=== PATIENT | female | born 1995 | race Caucasian/White ===

== ENCOUNTER 2021-07-08 16:21 | Emergency (ER) | payer OTHER ==
[~2021-07-08] VITALS: Ht 160 cm; Wt 49.4 kg
--- NOTE | 2021-07-08 16:40 | NUR ---
25 YRS FEMAL CAME FROM home c/o withdrawl xanex and fantanle stope for last 3-4 days awake and alert
--- NOTE | 2021-07-08 16:57 | NUR ---
wating to be seen by provider
[2021-07-08] MEDS ORDERED: IV NS 0.9% 1,000 ML BAG IV ONE ×2 (17:30→19:30)
[2021-07-08] MEDS ORDERED: LORAZEPAM INJ 2 MG/ML VIAL IV ONE (17:30)
[2021-07-08] MEDS ORDERED: ONDANSETRON HCL/PF 4 MG/2 ML VIAL IVP ONE (17:30)
[2021-07-08] MEDS ORDERED: KETOROLAC TROMETHAMINE INJ 30 MG/ML VIAL IV ONE (17:30)
[2021-07-08] MEDS ORDERED: CHLORDIAZEPOXIDE HCL 25 MG CAPSULE PO ONE ×2 (17:30→19:30)
[2021-07-08] MEDS ORDERED: CYCLOBENZAPRINE 10 MG TABLET PO ONE (17:30)
--- NOTE | 2021-07-08 17:35 | NUR ---
URINE SPECIMEN COLLECTED AND SENT TO LAB.
[2021-07-08] MEDS ORDERED: KETOROLAC TROMETHAMINE 15 MG/ML VIAL ONE (17:41)
[2021-07-08] MEDS ORDERED: ONDANSETRON HCL/PF 4 MG/2 ML VIAL ONE (17:41)
[2021-07-08] MEDS ORDERED: CHLORDIAZEPOXIDE HCL 25 MG CAPSULE ONE ×2 (17:42→19:23)
[2021-07-08] MEDS ORDERED: CYCLOBENZAPRINE 10 MG TABLET ONE (17:42)
[2021-07-08] MEDS ORDERED: LORAZEPAM INJ 2 MG/ML VIAL ONE (17:43)
--- NOTE | 2021-07-08 17:45 | NUR ---
seen by JASON CHRISTINA ORDER WAS GIVEN AND STERTED
[2021-07-08 17:51] LABS: BASOPHILS # (AUTO) 0.1 K/uL (0.0-0.2); BASOPHILS % (AUTO) 0.4 % (0.0-2.0); HEMATOCRIT 49 % (33-45); HEMOGLOBIN 16.1 g/dL (11.5-14.8); LYMPHOCYTES # (AUTO) 1.6 K/uL (0.8-4.8); LYMPHOCYTES % (AUTO) 10.9 % (20.0-44.0); MEAN CORPUSCULAR HGB CONC 33 g/dl (31.0-36.0); MEAN CORPUSCULAR VOLUME 84 fL (82-100); MONOCYTES # (AUTO) 0.6 K/uL (0.1-1.30); MONOCYTES % (AUTO) 4.2 % (2.0-12.0); NEUTROPHILS # (AUTO) 12.6 K/uL (1.8-8.9); NEUTROPHILS % (AUTO) 84.5 % (43.0-81.0); PLATELET COUNT (AUTO) 422 K/uL (150-450); WHITE BLOOD COUNT (AUTO) 14.9 K/uL (4.3-11.0)
[2021-07-08 18:10] LABS: ALBUMIN 5.3 g/dL (3.4-5.0); BILIRUBIN,DIRECT 0.2 mg/dL (0.0-0.2); BILIRUBIN,TOTAL 0.7 mg/dL (0.2-1.0); CALCIUM, SERUM 10.2 mg/dL (8.5-10.1); POTASSIUM 3.7 mmol/L (3.5-5.1); TOTAL PROTEIN, SERUM 9.8 g/dL (6.4-8.2)
[2021-07-08] MEDS: CLONIDINE HCL 0.1MG/24H PTWK 1 EA PATCH TD SCH ×2 (18:22→18:26)
[2021-07-08 18:23] LABS: BILIRUBIN,URINE NEGATIVE (NEGATIVE); COLOR,URINE YELLOW (YELLOW); LEUKOCYTE ESTERASE ,URINE TRACE (NEGATIVE); NITRITE, URINE NEGATIVE (NEGATIVE); PROTEIN,URINE NEGATIVE (NEGATIVE); UGLUCOSE NEGATIVE (NEGATIVE); UROBILINOGEN,URINE 0.2 EU/dL (0.2)
--- NOTE | 2021-07-08 18:30 | NUR ---
Clonidine 0.1mg pach appled on lt upper arm
--- NOTE | 2021-07-08 18:37 | NUR ---
PT COMMFORTABLE NO PAIN
[2021-07-08 18:38] LABS: BACTERIA,URINE Few /HPF (None Seen); MUCUS,URINE Few /LPF (None Seen); RBC,URINE 0-2 /HPF (0-2); SQUAMOUS EPITHELIAL CELL,UR Moderate /HPF (None Seen); WBC,URINE 0-2 /HPF (0-3)
--- NOTE | 2021-07-08 19:00 | NUR ---
pt c/o in and out of with drow ivf infused and completed encoure pt to increse po intack
--- NOTE | 2021-07-08 19:10 | NUR ---
Hand off to Siobhan balbuena fully up with drow
[2021-07-08] MEDS ORDERED: CYCL10TA9 PO (20:25)
[2021-07-08] MEDS ORDERED: CHLO25CA22 PO (20:25)
--- NOTE | 2021-07-08 20:50 | NUR ---
CALLED [facility]MENT [facility], AWARE PT WILL BE DISCHARGED. WILL BE HERE IN 15 MIN
--- NOTE | 2021-07-08 21:03 | NUR ---
PT WILL WAIT FOR HER RIDE (zay) IN WAITING ROOM
[2021-07-08 21:04] VITALS: BP 135/92
== END 2021-07-08 21:05 | disposition home or self-care (01) ==
LOC: ER 16:29
DX: F11.23 Opioid dependence with withdrawal (principal); F13.10 Sedative, hypnotic or anxiolytic abuse, uncomplicated; F10.10 Alcohol abuse, uncomplicated; F17.200 Nicotine dependence, unspecified, uncomplicated; R11.2 Nausea with vomiting, unspecified; R68.83 Chills (without fever); D72.829 Elevated white blood cell count, unspecified; E86.0 Dehydration; R00.0 Tachycardia, unspecified; F20.9 Schizophrenia, unspecified; F31.9 Bipolar disorder, unspecified; Y90.9 Presence of alcohol in blood, level not specified
CPT/HCPCS: 36415; 80048; 80076; 81001; 83690; 84703; 85025; 96361; 96374; 96375; 99285; J1885; J2060; J2405; J7030

== ENCOUNTER 2021-07-10 16:28 | Emergency (ER) | payer OTHER ==
[~2021-07-10] VITALS: Ht 160 cm; Wt 54.4 kg
[~2021-07-10 16:28] MED LIST: CHLO25CA22 PO; CYCL10TA9 PO
[2021-07-10] MEDS ORDERED: LORAZEPAM INJ 2 MG/ML VIAL IV ONE ×2 (17:30→19:00)
[2021-07-10] MEDS ORDERED: IV NS 0.9% 1,000 ML BAG IV ONE (17:30)
[2021-07-10] MEDS ORDERED: ONDANSETRON HCL/PF 4 MG/2 ML VIAL IVP ONE (17:30)
[2021-07-10] MEDS ORDERED: LORAZEPAM INJ 2 MG/ML VIAL ONE ×2 (18:00→20:54)
[2021-07-10] MEDS ORDERED: ONDANSETRON HCL/PF 4 MG/2 ML VIAL ONE (18:00)
--- NOTE | 2021-07-10 18:07 | NUR ---
THE PATIENT - SLEEPING AT BEDSIDE MEDS GIVEN HEP LOCK PIV # 20 - LEJ
[2021-07-10 18:12] LABS: BASOPHILS # (AUTO) 0.1 K/uL (0.0-0.2); BASOPHILS % (AUTO) 0.7 % (0.0-2.0); EOSINOPHILS % (AUTO) 2.3 % (0.0-6.0); HEMATOCRIT 39 % (33-45); HEMOGLOBIN 12.8 g/dL (11.5-14.8); LYMPHOCYTES # (AUTO) 3.5 K/uL (0.8-4.8); MEAN CORPUSCULAR HGB CONC 33 g/dl (31.0-36.0); MEAN CORPUSCULAR VOLUME 85 fL (82-100); MONOCYTES # (AUTO) 0.7 K/uL (0.1-1.30); MONOCYTES % (AUTO) 6.1 % (2.0-12.0); NEUTROPHILS # (AUTO) 6.5 K/uL (1.8-8.9); NEUTROPHILS % (AUTO) 58.9 % (43.0-81.0); PLATELET COUNT (AUTO) 324 K/uL (150-450); RED BLOOD CELL COUNT(AUTO) 4.64 MIL/uL (4.0-5.2); WHITE BLOOD COUNT (AUTO) 11.1 K/uL (4.3-11.0)
[2021-07-10 18:25] LABS: CALCIUM, SERUM 8.9 mg/dL (8.5-10.1); CREATININE 0.8 mg/dL (0.6-1.3); POTASSIUM 3.4 mmol/L (3.5-5.1)
[2021-07-10 18:31] LABS: ALBUMIN 3.9 g/dL (3.4-5.0); BILIRUBIN,DIRECT 0.1 mg/dL (0.0-0.2); BILIRUBIN,TOTAL 0.5 mg/dL (0.2-1.0); TOTAL PROTEIN, SERUM 7.2 g/dL (6.4-8.2)
--- NOTE | 2021-07-10 21:09 | NUR ---
IV removed. Catheter intact and site benign. Pressure and 4x4 applied to site. No bleeding noted.Patient discharged to home in stable condition. Written and verbal after care instructions given. Patient verbalizes understanding of instruction.
--- NOTE | 2021-07-10 21:11 | NUR ---
Patient discharged to home in stable condition. Written and verbal after care instructions given. Patient verbalizes understanding of instruction.
[2021-07-10 21:12] VITALS: BP 138/77
== END 2021-07-10 21:12 | disposition home or self-care (01) ==
LOC: ER 16:40
DX: F13.239 Sedative, hypnotic or anxiolytic dependence with withdrawal, unspecified (principal); F20.9 Schizophrenia, unspecified; F31.9 Bipolar disorder, unspecified; Z88.8 Allergy status to other drugs, medicaments and biological substances; Z79.899 Other long term (current) drug therapy
CPT/HCPCS: 36415; 80048; 80076; 84703; 85025; 93005; 96361; 96374; 96375; 96376; 99284; J2060 ×2; J2405; J7030

== ENCOUNTER 2022-06-29 09:07 | Emergency (ER) | payer OTHER ==
[~2022-06-29] VITALS: Ht 162.6 cm; Wt 54.9 kg
--- NOTE | 2022-06-29 09:20 | NUR ---
HALIMA FOR OK TO BOOK , PATIENTS STATES THAT SHE IS 3 MONTHS . ASKED TO GIVE US URINE SAMPLE BUT SHE REFUSED AT THIS TIME EVEN AFTER EXPLAINING THE IMPORTANCE OF URINE FOR CONTINUITY OF CARE . WILL TRY TO GET SAMPLE AGAIN. CARE CONTINUES
--- NOTE | 2022-06-29 11:00 | NUR ---
PATIENT STILL REFUSING TO GIVE URINE SPECIMEN. ER AWARE.
[2022-06-29] MEDS ORDERED: MIDAZOLAM HCL 2 MG/2ML VIAL ONE (11:26)
[2022-06-29] MEDS ORDERED: MIDAZOLAM HCL 2 MG/2ML VIAL IM ONE (11:30)
--- NOTE | 2022-06-29 12:20 | NUR ---
URINE COLLECTED AND SENT TO LAB
--- NOTE | 2022-06-29 12:30 | NUR ---
JB RELEASED THE PATIENT FROM [facility]. MADE AWARE
[2022-06-29 12:36] LABS: BILIRUBIN,URINE NEGATIVE (NEGATIVE); COLOR,URINE DARK YELLOW (YELLOW); LEUKOCYTE ESTERASE ,URINE NEGATIVE (NEGATIVE); NITRITE, URINE NEGATIVE (NEGATIVE); PH,URINE 7.5 (5.0-8.0); PROTEIN,URINE NEGATIVE (NEGATIVE); UGLUCOSE NEGATIVE (NEGATIVE); UROBILINOGEN,URINE 0.2 EU/dL (0.2)
[2022-06-29 12:39] LABS: BACTERIA,URINE Few /HPF (None Seen); RBC,URINE 0-2 /HPF (0-2); SQUAMOUS EPITHELIAL CELL,UR Rare /HPF (None Seen); WBC,URINE 0-2 /HPF (0-3)
[2022-06-29 12:44] VITALS: BP 135/84
--- NOTE | 2022-06-29 12:44 | NUR ---
Patient discharged to home in stable condition. Written and verbal after care instructions given. Patient verbalizes understanding of instruction.
== END 2022-06-29 12:45 | disposition home or self-care (01) ==
LOC: ER 09:19
DX: F19.90 Other psychoactive substance use, unspecified, uncomplicated (principal); F20.9 Schizophrenia, unspecified; F31.9 Bipolar disorder, unspecified; Z88.8 Allergy status to other drugs, medicaments and biological substances
CPT/HCPCS: 99283; 96372; 84703; 81001; J2250